=== PATIENT | male | born 1945 | race Caucasian/White ===

== ENCOUNTER 2021-06-12 22:15 | Inpatient (IN) | payer MEDICARE ==
[2021-06-13] MEDS ORDERED: Sodium Chloride 0.9% 1,000 ML IV SCH (04:15)
[2021-06-13 05:36] LABS: #Basophils 0.1 thou/uL (0.0-0.2); #Eosinphils 0.2 thou/uL (0.0-0.7); #Lymphocytes 1.8 thou/uL (1.20-3.40); #Neutrophils 6.9 thou/uL (1.40-6.50); %Basophils 0.5 % (0.0-1.0); %Eosinophils 1.7 % (0.0-10.0); %Lymphocytes 18.3 % (21.0-51.0); %Monocytes 9.9 % (0.0-10.0); %Neutrophils 69.5 % (42.0-75.0); Hemoglobin 13.3 g/dL (14.0-18.0); Mean Corpuscular HGB CONC 31.4 g/dL (32.0-36.0); Mean Corpuscular Hemoglobin 30.5 pg (27.0-31.0); Mean Corpuscular Volume 97.1 fL (78.0-98.0); Mean Platelet Volume 8.1 fL (7.4-10.4); Platelet Count 224 thou/uL (130-400); RBC Distribution Width 16.1 % (11.5-14.5); Red Blood Cell (RBC) Count 4.38 mill/uL (4.70-6.10)
[2021-06-13 05:56] LABS: Anion Gap 15 mmol/L (10-20); BUN (Urea Nitrogen) 22 mg/dL (8.4-25.7); Calc. Creatinine Clearance 101 mL/min (70-130); Calcium 8.2 mg/dL (7.8-10.44); Carbon Dioxide 29 mmol/L (23-31); Chloride 100 mmol/L (98-107); Glucose 87 mg/dL (83-110); Potassium 3.4 mmol/L (3.5-5.1); Sodium 141 mmol/L (136-145)
[2021-06-13] MEDS ORDERED: Bisacodyl 5 MG TAB PO PRN (08:36)
[2021-06-13] MEDS ORDERED: Albuterol Sulfate 2.5 mg/3 ml Neb NEB PRN (10:07)
[2021-06-13] MEDS ORDERED: HYDROcodone/Acetaminophen 5/325 mg Tablet PO PRN (10:08)
[2021-06-13] MEDS ORDERED: Piperacillin/Tazobactam 3.375 GM in Sodium Chloride 0.9% 100 ML IVPB SCH (10:15)
[2021-06-13] MEDS ORDERED: Bumetanide 1 MG/4 ML VIAL IVP SCH (10:15)
[2021-06-13 11:30] LABS: INR-International Normal Ratio 1.6; Prothrombin Time 18.9 sec (12.0-14.7)
[2021-06-13] MEDS: Silodosin 8 MG CAP PO SCH (12:14)
[2021-06-13] MEDS: Bumetanide 1 MG/4 ML VIAL IVP SCH (15:22)
[2021-06-13] MEDS ORDERED: Potassium Chloride 20 MEQ TAB PO SCH (15:30)
[2021-06-13] MEDS: Piperacillin/Tazobactam 3.375 GM in Sodium Chloride 0.9% 100 ML IVPB SCH ×2 (16:39→22:08)
[2021-06-13] MEDS ORDERED: Warfarin Sodium 5 MG TAB PO SCH (17:00)
[2021-06-13] MEDS: Mometasone 100 MCG/PUFF (1 INHALER) INH SCH (19:07)
[2021-06-13] MEDS: Atorvastatin Calcium 10 MG TAB PO SCH (22:08)
[2021-06-14] MEDS: HYDROcodone/Acetaminophen 5/325 mg Tablet PO PRN ×2 (04:59→16:53)
[2021-06-14 05:58] LABS: #Basophils 0.1 thou/uL (0.0-0.2); #Eosinphils 0.3 thou/uL (0.0-0.7); #Lymphocytes 2.2 thou/uL (1.20-3.40); #Monocytes 0.7 thou/uL (0.11-0.59); #Neutrophils 4.5 thou/uL (1.40-6.50); %Basophils 0.7 % (0.0-1.0); %Eosinophils 3.8 % (0.0-10.0); %Monocytes 8.8 % (0.0-10.0); %Neutrophils 57.7 % (42.0-75.0); Hemoglobin 13.2 g/dL (14.0-18.0); Mean Corpuscular HGB CONC 31.3 g/dL (32.0-36.0); Mean Corpuscular Hemoglobin 30.4 pg (27.0-31.0); Mean Corpuscular Volume 96.9 fL (78.0-98.0); Mean Platelet Volume 7.9 fL (7.4-10.4); Platelet Count 208 thou/uL (130-400); RBC Distribution Width 16.2 % (11.5-14.5); Red Blood Cell (RBC) Count 4.34 mill/uL (4.70-6.10); White Blood Cell (WBC) Count 7.7 thou/uL (4.8-10.8)
[2021-06-14 06:06] LABS: INR-International Normal Ratio 1.5; Prothrombin Time 18.2 sec (12.0-14.7)
[2021-06-14 06:19] LABS: Anion Gap 11 mmol/L (10-20); BUN (Urea Nitrogen) 19 mg/dL (8.4-25.7); Calc. Creatinine Clearance 99 mL/min (70-130); Calcium 8.1 mg/dL (7.8-10.44); Carbon Dioxide 33 mmol/L (23-31); Chloride 100 mmol/L (98-107); Glucose 98 mg/dL (83-110); Magnesium 1.5 mg/dL (1.6-2.6); Potassium 3.8 mmol/L (3.5-5.1); Sodium 140 mmol/L (136-145)
[2021-06-14] MEDS: Bumetanide 1 MG/4 ML VIAL IVP SCH ×2 (06:26→12:59)
[2021-06-14] MEDS: Piperacillin/Tazobactam 3.375 GM in Sodium Chloride 0.9% 100 ML IVPB SCH ×3 (06:27→20:37)
[2021-06-14] MEDS: Potassium Chloride 20 MEQ TAB PO SCH (08:19)
[2021-06-14] MEDS: Silodosin 8 MG CAP PO SCH (08:19)
[2021-06-14] MEDS: Mometasone 100 MCG/PUFF (1 INHALER) INH SCH ×2 (09:59→19:10)
[2021-06-14] MEDS: Atorvastatin Calcium 10 MG TAB PO SCH (20:37)
[2021-06-15] MEDS: Piperacillin/Tazobactam 3.375 GM in Sodium Chloride 0.9% 100 ML IVPB SCH ×3 (06:01→22:10)
[2021-06-15] MEDS: Bumetanide 1 MG/4 ML VIAL IVP SCH ×2 (06:02→15:19)
[2021-06-15] MEDS: HYDROcodone/Acetaminophen 5/325 mg Tablet PO PRN ×2 (06:06→22:09)
[2021-06-15] MEDS: Mometasone 100 MCG/PUFF (1 INHALER) INH SCH ×2 (06:15→18:23)
[2021-06-15] MEDS: Potassium Chloride 20 MEQ TAB PO SCH (08:29)
[2021-06-15] MEDS: Silodosin 8 MG CAP PO SCH (08:29)
[2021-06-15] MEDS ORDERED: Morphine 2 MG/ML VIAL ONE (14:30)
[2021-06-15] MEDS ORDERED: Propofol 1,000 MG/100 ML VIAL IV ONE (15:02)
[2021-06-15] MEDS ORDERED: Fentanyl 100 MCG/2 ML VIAL ONE (15:26)
[2021-06-15] MEDS ORDERED: Piperacillin/Tazobactam 3.375 GM VIAL ONE (15:28)
[2021-06-15] MEDS ORDERED: Sodium Chloride 0.9% 100 ML ONE (15:28)
[2021-06-15] MEDS ORDERED: Dexamethasone 20 MG/5 ML VIAL ONE (15:54)
[2021-06-15] MEDS ORDERED: PROPOFOL 200 MG/20 ML VIAL ONE (15:54)
[2021-06-15] MEDS ORDERED: PHENYLEPHRINE-NS 100 MCG/ML 10 ML SYRINGE ONE (15:54)
[2021-06-15] MEDS ORDERED: Lidocaine 1% PF 5 ML VIAL ONE (15:54)
[2021-06-15] MEDS ORDERED: Ondansetron PF 4 MG/2 ML Vial ONE (15:54)
[2021-06-15] MEDS ORDERED: Sodium Chloride 0.9% 30 ML ONE (16:07)
[2021-06-15] MEDS: Atorvastatin Calcium 10 MG TAB PO SCH (22:09)
[2021-06-16] MEDS: Morphine 2 MG/ML VIAL SLOW IVP PRN ×2 (00:22→06:12)
[2021-06-16] MEDS ORDERED: Bumetanide 1 MG/4 ML VIAL IVP SCH (00:30)
[2021-06-16] MEDS: HYDROcodone/Acetaminophen 5/325 mg Tablet PO PRN ×2 (04:15→11:42)
[2021-06-16] MEDS: Piperacillin/Tazobactam 3.375 GM in Sodium Chloride 0.9% 100 ML IVPB SCH (06:11)
[2021-06-16] MEDS: Bumetanide 1 MG/4 ML VIAL IVP SCH ×2 (06:11→11:43)
[2021-06-16] MEDS ORDERED: Ibuprofen 600 MG TAB PO PRN (08:15)
[2021-06-16] MEDS ORDERED: Acetaminophen 500 MG TAB PO PRN (08:15)
[2021-06-16] MEDS: traMADol HCl 50 MG TAB PO PRN ×2 (09:37→16:09)
[2021-06-16] MEDS: Sulfameth/Trimethoprim DS 800-160mg TAB PO SCH ×2 (09:37→20:18)
[2021-06-16] MEDS: Doxycycline 100 MG CAP PO SCH ×2 (09:38→20:18)
[2021-06-16] MEDS: Potassium Chloride 20 MEQ TAB PO SCH (09:38)
[2021-06-16] MEDS: Silodosin 8 MG CAP PO SCH (09:39)
[2021-06-16] MEDS: Mometasone 100 MCG/PUFF (1 INHALER) INH SCH ×2 (10:03→18:48)
[2021-06-16] MEDS: Bumetanide 1 MG TAB PO SCH (16:11)
[2021-06-16] MEDS: Morphine 4 MG/ML VIAL SLOW IVP PRN (20:17)
[2021-06-16] MEDS: Atorvastatin Calcium 10 MG TAB PO SCH (20:18)
[2021-06-16] MEDS: Docusate 100 MG CAP PO PRN (20:41)
[2021-06-17] MEDS ORDERED: diphenhydrAMINE 25 MG CAP PO PRN (01:36)
[2021-06-17] MEDS: Morphine 4 MG/ML VIAL SLOW IVP PRN ×2 (02:00→10:11)
[2021-06-17 05:28] LABS: #Lymphocytes 2.1 thou/uL (1.20-3.40); #Monocytes 0.8 thou/uL (0.11-0.59); #Neutrophils 7.7 thou/uL (1.40-6.50); %Basophils 0.2 % (0.0-1.0); %Eosinophils 0.2 % (0.0-10.0); %Lymphocytes 19.5 % (21.0-51.0); %Monocytes 7.1 % (0.0-10.0); Hemoglobin 13.5 g/dL (14.0-18.0); Mean Corpuscular HGB CONC 31.7 g/dL (32.0-36.0); Mean Corpuscular Hemoglobin 31.1 pg (27.0-31.0); Mean Corpuscular Volume 98.1 fL (78.0-98.0); Mean Platelet Volume 8.3 fL (7.4-10.4); Platelet Count 212 thou/uL (130-400); RBC Distribution Width 16.1 % (11.5-14.5); Red Blood Cell (RBC) Count 4.35 mill/uL (4.70-6.10); White Blood Cell (WBC) Count 10.6 thou/uL (4.8-10.8)
[2021-06-17 05:50] LABS: Anion Gap 14 mmol/L (10-20); BUN (Urea Nitrogen) 25 mg/dL (8.4-25.7); Calc. Creatinine Clearance 90 mL/min (70-130); Calcium 8.5 mg/dL (7.8-10.44); Carbon Dioxide 34 mmol/L (23-31); Chloride 94 mmol/L (98-107); Glucose 102 mg/dL (83-110); Potassium 3.7 mmol/L (3.5-5.1); Sodium 138 mmol/L (136-145)
[2021-06-17] MEDS: Mometasone 100 MCG/PUFF (1 INHALER) INH SCH ×2 (06:56→18:51)
[2021-06-17] MEDS: Bumetanide 1 MG TAB PO SCH ×2 (09:19→16:12)
[2021-06-17] MEDS: Sulfameth/Trimethoprim DS 800-160mg TAB PO SCH ×2 (09:20→19:54)
[2021-06-17] MEDS: Doxycycline 100 MG CAP PO SCH ×2 (09:20→19:54)
[2021-06-17] MEDS: Silodosin 8 MG CAP PO SCH (09:20)
[2021-06-17] MEDS: Potassium Chloride 20 MEQ TAB PO SCH (09:21)
[2021-06-17] MEDS ORDERED: Bisacodyl 5 MG TAB PO SCH (12:00)
[2021-06-17] MEDS: HYDROcodone/Acetaminophen 5/325 mg Tablet PO PRN ×2 (14:17→19:53)
[2021-06-17] MEDS ORDERED: Aspirin 81 mg Enteric Coated Tablet PO SCH (16:00)
[2021-06-17] MEDS: Warfarin Sodium 5 MG TAB PO SCH (16:11)
[2021-06-17] MEDS: traMADol HCl 50 MG TAB PO PRN (16:13)
[2021-06-17] MEDS: Docusate 100 MG CAP PO PRN (19:54)
[2021-06-17] MEDS: Atorvastatin Calcium 10 MG TAB PO SCH (19:54)
[2021-06-17] MEDS ORDERED: Pravastatin Sodium 40 MG TAB PO SCH (21:00)
[2021-06-18] MEDS: Doxycycline 100 MG CAP PO SCH ×2 (08:30→20:24)
[2021-06-18] MEDS: Aspirin 81 mg Enteric Coated Tablet PO SCH (08:30)
[2021-06-18] MEDS: Lisinopril 5 MG TAB PO SCH (08:30)
[2021-06-18] MEDS: Potassium Chloride 20 MEQ TAB PO SCH (08:30)
[2021-06-18] MEDS: Bumetanide 1 MG TAB PO SCH ×2 (08:30→15:53)
[2021-06-18] MEDS: Silodosin 8 MG CAP PO SCH (08:31)
[2021-06-18] MEDS: Sulfameth/Trimethoprim DS 800-160mg TAB PO SCH ×2 (08:31→20:25)
[2021-06-18] MEDS: Mometasone 100 MCG/PUFF (1 INHALER) INH SCH (08:36)
[2021-06-18] MEDS: HYDROcodone/Acetaminophen 5/325 mg Tablet PO PRN (15:54)
[2021-06-18] MEDS: Warfarin Sodium 5 MG TAB PO SCH (15:55)
[2021-06-18] MEDS: Atorvastatin Calcium 10 MG TAB PO SCH (20:24)
[2021-06-18] MEDS: Docusate 100 MG CAP PO PRN (20:24)
[2021-06-19] MEDS: Mometasone 100 MCG/PUFF (1 INHALER) INH SCH ×3 (03:34→18:33)
[2021-06-19] MEDS: HYDROcodone/Acetaminophen 5/325 mg Tablet PO PRN (05:22)
[2021-06-19 05:46] LABS: INR-International Normal Ratio 1.2; Prothrombin Time 15.6 sec (12.0-14.7)
[2021-06-19] MEDS: Potassium Chloride 20 MEQ TAB PO SCH (08:55)
[2021-06-19] MEDS: Docusate 100 MG CAP PO SCH (08:55)
[2021-06-19] MEDS: Aspirin 81 mg Enteric Coated Tablet PO SCH (08:55)
[2021-06-19] MEDS: Lisinopril 5 MG TAB PO SCH (08:55)
[2021-06-19] MEDS: Doxycycline 100 MG CAP PO SCH ×2 (08:55→20:57)
[2021-06-19] MEDS: Sulfameth/Trimethoprim DS 800-160mg TAB PO SCH ×2 (08:56→20:57)
[2021-06-19] MEDS: Bumetanide 1 MG TAB PO SCH ×2 (08:56→16:36)
[2021-06-19] MEDS: Silodosin 8 MG CAP PO SCH (09:19)
[2021-06-19] MEDS ORDERED: Magnesium Citrate 300 ML BOT PO SCH (16:00)
[2021-06-19] MEDS ORDERED: Warfarin Sodium 7.5 MG TAB PO SCH (17:00)
[2021-06-19] MEDS: Atorvastatin Calcium 10 MG TAB PO SCH (20:57)
[2021-06-20] MEDS: HYDROcodone/Acetaminophen 5/325 mg Tablet PO PRN ×4 (00:49→22:45)
[2021-06-20 06:38] LABS: INR-International Normal Ratio 1.4; Prothrombin Time 16.9 sec (12.0-14.7)
[2021-06-20] MEDS: Mometasone 100 MCG/PUFF (1 INHALER) INH SCH ×2 (06:48→19:13)
[2021-06-20] MEDS: Lisinopril 5 MG TAB PO SCH (08:23)
[2021-06-20] MEDS: Doxycycline 100 MG CAP PO SCH ×2 (08:23→20:05)
[2021-06-20] MEDS: Docusate 100 MG CAP PO SCH (08:24)
[2021-06-20] MEDS: Aspirin 81 mg Enteric Coated Tablet PO SCH (08:24)
[2021-06-20] MEDS: Bumetanide 1 MG TAB PO SCH ×2 (08:24→15:57)
[2021-06-20] MEDS: Silodosin 8 MG CAP PO SCH (08:24)
[2021-06-20] MEDS: Sulfameth/Trimethoprim DS 800-160mg TAB PO SCH ×2 (08:24→20:05)
[2021-06-20] MEDS: Potassium Chloride 20 MEQ TAB PO SCH (08:24)
[2021-06-20] MEDS: Apixaban 5 MG TAB PO SCH ×2 (08:33→20:05)
[2021-06-20 16:50] LABS: SARS-CoV-2 PCR by NAA Not Detected (NotDetected)
[2021-06-20] MEDS: Atorvastatin Calcium 10 MG TAB PO SCH (20:05)
[2021-06-21] MEDS: HYDROcodone/Acetaminophen 5/325 mg Tablet PO PRN ×2 (05:48→16:56)
[2021-06-21] MEDS: Mometasone 100 MCG/PUFF (1 INHALER) INH SCH ×2 (08:17→19:35)
[2021-06-21] MEDS: Silodosin 8 MG CAP PO SCH (09:14)
[2021-06-21] MEDS: Doxycycline 100 MG CAP PO SCH ×2 (09:14→19:36)
[2021-06-21] MEDS: Docusate 100 MG CAP PO SCH (09:14)
[2021-06-21] MEDS: Apixaban 5 MG TAB PO SCH ×2 (09:15→19:37)
[2021-06-21] MEDS: Aspirin 81 mg Enteric Coated Tablet PO SCH (09:16)
[2021-06-21] MEDS: Sulfameth/Trimethoprim DS 800-160mg TAB PO SCH ×2 (09:16→19:37)
[2021-06-21] MEDS: Potassium Chloride 20 MEQ TAB PO SCH (09:16)
[2021-06-21] MEDS: Bumetanide 1 MG TAB PO SCH ×2 (09:23→15:46)
[2021-06-21] MEDS: Lisinopril 5 MG TAB PO SCH (09:23)
[2021-06-21 14:36] VITALS: BMI 30.7
[2021-06-21] MEDS: Atorvastatin Calcium 10 MG TAB PO SCH (19:37)
[2021-06-21] MEDS: traMADol HCl 50 MG TAB PO PRN (19:38)
[2021-06-22] MEDS: HYDROcodone/Acetaminophen 5/325 mg Tablet PO PRN (00:52)
[2021-06-22] MEDS: Mometasone 100 MCG/PUFF (1 INHALER) INH SCH ×2 (07:52→18:59)
[2021-06-22] MEDS: Silodosin 8 MG CAP PO SCH (08:37)
[2021-06-22] MEDS: Doxycycline 100 MG CAP PO SCH ×2 (08:37→19:53)
[2021-06-22] MEDS: Sulfameth/Trimethoprim DS 800-160mg TAB PO SCH ×2 (08:37→19:53)
[2021-06-22] MEDS: Aspirin 81 mg Enteric Coated Tablet PO SCH (08:37)
[2021-06-22] MEDS: Potassium Chloride 20 MEQ TAB PO SCH (08:37)
[2021-06-22] MEDS: Apixaban 5 MG TAB PO SCH ×2 (08:38→19:52)
[2021-06-22] MEDS: traMADol HCl 50 MG TAB PO PRN ×2 (08:38→20:43)
[2021-06-22] MEDS: Docusate 100 MG CAP PO SCH (08:39)
[2021-06-22] MEDS: Bumetanide 1 MG TAB PO SCH ×2 (09:16→15:59)
[2021-06-22] MEDS: Lisinopril 5 MG TAB PO SCH (10:52)
[2021-06-22] MEDS ORDERED: FLU VACC QS2021-22(65YR UP)/PF 240 MCG/0.7 ML SYRINGE IM ONE (12:45)
[2021-06-22] MEDS: Atorvastatin Calcium 10 MG TAB PO SCH (19:52)
[2021-06-23] MEDS: HYDROcodone/Acetaminophen 5/325 mg Tablet PO PRN ×2 (00:59→05:15)
[2021-06-23] MEDS ORDERED: Famotidine 20 MG TAB PO SCH ×2 (03:15→09:00)
[2021-06-23] MEDS ORDERED: Ondansetron PF 4 MG/2 ML Vial IVP PRN (03:56)
[2021-06-23] MEDS: Mometasone 100 MCG/PUFF (1 INHALER) INH SCH (07:52)
[2021-06-23] MEDS: Potassium Chloride 20 MEQ TAB PO SCH (08:14)
[2021-06-23] MEDS: Doxycycline 100 MG CAP PO SCH (08:15)
[2021-06-23] MEDS: Apixaban 5 MG TAB PO SCH (08:15)
[2021-06-23] MEDS: Docusate 100 MG CAP PO SCH (08:15)
[2021-06-23] MEDS: Aspirin 81 mg Enteric Coated Tablet PO SCH (08:15)
[2021-06-23] MEDS: Sulfameth/Trimethoprim DS 800-160mg TAB PO SCH (08:15)
[2021-06-23] MEDS: Bumetanide 1 MG TAB PO SCH ×3 (08:15→15:33)
[2021-06-23] MEDS: Lisinopril 5 MG TAB PO SCH (08:15)
[2021-06-23] MEDS: Silodosin 8 MG CAP PO SCH (08:15)
[2021-06-23] MEDS ORDERED: Promethazine HCl 25 MG/ML VIAL IM PRN (08:27)
[2021-06-23 11:51] VITALS: BP 114/55; TEMP 98.2
== END 2021-06-23 16:25 | disposition swing bed (61) | DRG 474 ==
LOC: 3SE 06-13 03:27
PROVIDERS: ADMIT Student in an Organized Health Care Education/Training Program; ATTEND Internal Medicine
PROC: 0Y6M0Z4 Detachment at Right Foot, Complete 1st Ray, Open Approach (ICD-10-PCS; principal; 2021-06-15)
PROC: 05H533Z Insertion of Infusion Device into Right Subclavian Vein, Percutaneous Approach (ICD-10-PCS; 2021-06-15)
DX: M86.171 Other acute osteomyelitis, right ankle and foot (principal); J96.20 Acute and chronic respiratory failure, unspecified whether with hypoxia or hypercapnia; I50.23 Acute on chronic systolic (congestive) heart failure; G45.9 Transient cerebral ischemic attack, unspecified; L03.115 Cellulitis of right lower limb; I48.20 Chronic atrial fibrillation, unspecified; L97.419 Non-pressure chronic ulcer of right heel and midfoot with unspecified severity; E87.6 Hypokalemia; K59.00 Constipation, unspecified; Z20.822 Contact with and (suspected) exposure to COVID-19; J44.9 Chronic obstructive pulmonary disease, unspecified; I25.10 Atherosclerotic heart disease of native coronary artery without angina pectoris; Z95.5 Presence of coronary angioplasty implant and graft; Z95.2 Presence of prosthetic heart valve; Z86.718 Personal history of other venous thrombosis and embolism; Z79.51 Long term (current) use of inhaled steroids; Z79.899 Other long term (current) drug therapy; Z87.891 Personal history of nicotine dependence; Z98.890 Other specified postprocedural states
CPT/HCPCS: 36415; 71045; 78315; 80048; 83735; 83880; 85025; 85610; 86140; 87040; 88305; 88311; 90471; 90662; 93306; 94640; A9503; C1751; G0008; J1100; J2270; J2405; J2543; J2550; J2704; J3010; J3490; J7620; Q0163; U0003; U0005

== ENCOUNTER 2022-03-10 12:14 | Inpatient (IN) | payer MEDICARE ==
[2022-03-10] MEDS ORDERED: GASTROGRAFIN 30 ML BOT ONE (12:18)
[2022-03-10] MEDS ORDERED: Iopamidol-370 76% 500 ML 1 ML ONE (12:18)
[2022-03-10 14:10] LABS: #Eosinphils 0.3 thou/uL (0.0-0.7); #Lymphocytes 0.8 thou/uL (1.20-3.40); #Monocytes 0.9 thou/uL (0.11-0.59); #Neutrophils 9.3 thou/uL (1.40-6.50); %Basophils 0.3 % (0.0-1.0); %Eosinophils 2.4 % (0.0-10.0); %Lymphocytes 6.9 % (21.0-51.0); %Monocytes 7.8 % (0.0-10.0); %Neutrophils 82.6 % (42.0-75.0); Hemoglobin 14.1 g/dL (14.0-18.0); Mean Corpuscular HGB CONC 31.1 g/dL (32.0-36.0); Mean Corpuscular Hemoglobin 30.5 pg (27.0-31.0); Mean Corpuscular Volume 98.1 fL (78.0-98.0); Mean Platelet Volume 9.3 fL (7.4-10.4); Platelet Count 132 thou/uL (130-400); Red Blood Cell (RBC) Count 4.64 mill/uL (4.70-6.10); White Blood Cell (WBC) Count 11.3 thou/uL (4.8-10.8)
[2022-03-10 14:21] LABS: INR-International Normal Ratio 1.5; Prothrombin Time 17.9 sec (12.0-14.7)
[2022-03-10 14:22] LABS: PTT 34.5 sec (22.9-36.1)
[2022-03-10 14:30] LABS: ALT (SGPT) 37 U/L (8-55); AST (SGOT) 97 U/L (5-34); Albumin 2.7 g/dL (3.4-4.8); Alkaline Phosphatase 139 U/L (40-110); Anion Gap 17 mmol/L (10-20); BUN (Urea Nitrogen) 30 mg/dL (8.4-25.7); Bilirubin, Total 12.6 mg/dL (0.2-1.2); Calc. Creatinine Clearance 0 mL/min (70-130); Calcium 8.4 mg/dL (7.8-10.44); Carbon Dioxide 23 mmol/L (23-31); Chloride 103 mmol/L (98-107); Globulin 4.1 g/dL (2.4-3.5); Glucose 71 mg/dL (83-110); Lipase 803 U/L (8-78); Potassium 4.9 mmol/L (3.5-5.1); Protein, Total 6.8 g/dL (5.8-8.1); Sodium 138 mmol/L (136-145)
[2022-03-10] MEDS ORDERED: Ondansetron PF 4 MG/2 ML Vial ONE (15:24)
[2022-03-10 16:20] LABS: Bilirubin Unable to Interpret (Negative); Blood, Urine Unable to Interpret (Negative); Clarity Hazy (Clear); Glucose, Urine (Dipstick) Unable to Interpret mg/dL (Negative); Ketone, Urine Unable to Interpret mg/dL (Negative); Leukocyte Unable to Interpret Leu/uL (Negative); Nitrite Unable to Interpret (Negative); Protein, Urine (Dipstick) Unable to Interpret mg/dL (Neg-Trace); Specific Gravity, Urine 1.025 (1.002-1.036); Urobilinogen UNABLE TO INTERPRET mg/dL (Less than 2); pH, Urine 5.9 (5.0-9.0)
[2022-03-10 16:24] LABS: Bacteria/HPF 2+ HPF (None Seen); Squamous Epithelial None Seen HPF (0-3)
[2022-03-10] MEDS ORDERED: hydrALAZINE 20 MG/ML VIAL SLOW IVP PRN (17:34)
[2022-03-10] MEDS ORDERED: Acetaminophen 325 MG TAB PO PRN (17:34)
[2022-03-10] MEDS ORDERED: Ondansetron ODT 4 MG TAB PO PRN (17:34)
[2022-03-10] MEDS ORDERED: Morphine IR 10 MG/5 ML UDCUP PO PRN (17:40)
[2022-03-10] MEDS: Mometasone 100 MCG/PUFF (1 INHALER) INH SCH (19:04)
[2022-03-10 22:17] VITALS: BMI 31.4
[2022-03-10] MEDS: Lactated Ringer's 1,000 ML IV SCH (23:14)
[2022-03-10] MEDS: cefTRIAXone\\ROCEPHIN 1 GM in Sodium Chloride 0.9% 100 ML IVPB SCH (23:15)
[2022-03-11] MEDS: Ondansetron PF 4 MG/2 ML Vial IVP PRN ×2 (00:54→18:09)
[2022-03-11 07:06] LABS: #Eosinphils 0.1 thou/uL (0.0-0.7); #Lymphocytes 1.6 thou/uL (1.20-3.40); #Monocytes 0.7 thou/uL (0.11-0.59); #Neutrophils 8.9 thou/uL (1.40-6.50); %Basophils 0.1 % (0.0-1.0); %Eosinophils 0.6 % (0.0-10.0); %Lymphocytes 13.8 % (21.0-51.0); %Monocytes 6.5 % (0.0-10.0); %Neutrophils 78.9 % (42.0-75.0); Hemoglobin 14.7 g/dL (14.0-18.0); Mean Corpuscular Volume 96.8 fL (78.0-98.0); Platelet Count 131 thou/uL (130-400); RBC Distribution Width 16.2 % (11.5-14.5); White Blood Cell (WBC) Count 11.2 thou/uL (4.8-10.8)
[2022-03-11] MEDS: Mometasone 100 MCG/PUFF (1 INHALER) INH SCH ×2 (07:20→17:15)
[2022-03-11 07:36] LABS: ALT (SGPT) 41 U/L (8-55); AST (SGOT) 108 U/L (5-34); Albumin 2.6 g/dL (3.4-4.8); Alkaline Phosphatase 138 U/L (40-110); Anion Gap 19 mmol/L (10-20); BUN (Urea Nitrogen) 26 mg/dL (8.4-25.7); Bilirubin, Total 13.5 mg/dL (0.2-1.2); Calc. Creatinine Clearance 110 mL/min (70-130); Calcium 8.6 mg/dL (7.8-10.44); Carbon Dioxide 19 mmol/L (23-31); Chloride 102 mmol/L (98-107); Globulin 4.5 g/dL (2.4-3.5); Glucose 71 mg/dL (83-110); Lipase 396 U/L (8-78); Potassium 4.8 mmol/L (3.5-5.1); Protein, Total 7.1 g/dL (5.8-8.1); Sodium 135 mmol/L (136-145)
[2022-03-11] MEDS: Enoxaparin Sodium 40 MG/0.4 ML SYRINGE SC SCH (08:43)
[2022-03-11] MEDS: Saccharomyces boulardii 250 MG CAP PO SCH (08:43)
[2022-03-11] MEDS: HYDROcodone/Acetaminophen 5/325 mg Tablet PO PRN (12:16)
[2022-03-11] MEDS: Lactated Ringer's 1,000 ML IV SCH (12:18)
[2022-03-11 14:51] LABS: HBCM Index 0.07 S/CO (0-0.79); HBSAg Index 0.32 S/CO (0-0.99); Hep A IgM AB Non-Reactive (NonReactive); Hep A IgM S/CO 0.17 S/CO (0-0.79); Hep B Surf Ag Non-Reactive S/CO (NonReactive); Hep C IgG Ab Non-Reactive (NonReactive); Hep C Index 0.21 S/CO (0-0.79); Hepatitis B Core IgM Abs Non-Reactive (NonReactive)
[2022-03-11] MEDS ORDERED: Promethazine HCl 25 MG in Sodium Chloride 0.9% 50 ML IVPB SCH (20:45)
[2022-03-11] MEDS: Lorazepam 0.5 MG TAB PO PRN (21:48)
[2022-03-12] MEDS: Ondansetron PF 4 MG/2 ML Vial IVP PRN (00:01)
[2022-03-12] MEDS: HYDROcodone/Acetaminophen 5/325 mg Tablet PO PRN ×2 (00:02→19:44)
[2022-03-12] MEDS: cefTRIAXone\\ROCEPHIN 1 GM in Sodium Chloride 0.9% 100 ML IVPB SCH ×2 (00:06→23:21)
[2022-03-12] MEDS ORDERED: Promethazine HCl 25 MG in Sodium Chloride 0.9% 50 ML IVPB PRN (00:11)
[2022-03-12] MEDS ORDERED: Furosemide 40 MG/4 ML VIAL SLOW IVP SCH (00:15)
[2022-03-12] MEDS: Mometasone 100 MCG/PUFF (1 INHALER) INH SCH ×2 (06:29→18:42)
[2022-03-12 06:44] LABS: #Lymphocytes 0.6 thou/uL (1.20-3.40); #Monocytes 0.8 thou/uL (0.11-0.59); #Neutrophils 13.3 thou/uL (1.40-6.50); %Eosinophils 0.1 % (0.0-10.0); %Lymphocytes 4.4 % (21.0-51.0); %Monocytes 5.1 % (0.0-10.0); %Neutrophils 90.4 % (42.0-75.0); Mean Corpuscular HGB CONC 30.8 g/dL (32.0-36.0); Mean Corpuscular Hemoglobin 29.9 pg (27.0-31.0); Mean Corpuscular Volume 97.1 fL (78.0-98.0); Mean Platelet Volume 9.6 fL (7.4-10.4); Platelet Count 162 thou/uL (130-400); RBC Distribution Width 16.4 % (11.5-14.5); Red Blood Cell (RBC) Count 5.01 mill/uL (4.70-6.10); White Blood Cell (WBC) Count 14.7 thou/uL (4.8-10.8)
[2022-03-12 07:09] LABS: ALT (SGPT) 42 U/L (8-55); AST (SGOT) 106 U/L (5-34); Albumin 2.7 g/dL (3.4-4.8); Alkaline Phosphatase 142 U/L (40-110); Anion Gap 21 mmol/L (10-20); BUN (Urea Nitrogen) 25 mg/dL (8.4-25.7); Bilirubin, Total 15.3 mg/dL (0.2-1.2); Calc. Creatinine Clearance 101 mL/min (70-130); Calcium 8.6 mg/dL (7.8-10.44); Carbon Dioxide 20 mmol/L (23-31); Chloride 101 mmol/L (98-107); Globulin 4.8 g/dL (2.4-3.5); Glucose 68 mg/dL (83-110); Potassium 4.7 mmol/L (3.5-5.1); Protein, Total 7.5 g/dL (5.8-8.1); Sodium 137 mmol/L (136-145)
[2022-03-12] MEDS: Lorazepam 0.5 MG TAB PO PRN (08:23)
[2022-03-12] MEDS: Saccharomyces boulardii 250 MG CAP PO SCH (08:23)
[2022-03-12] MEDS: Enoxaparin Sodium 40 MG/0.4 ML SYRINGE SC SCH (08:23)
[2022-03-12] MEDS: Furosemide 40 MG/4 ML VIAL SLOW IVP SCH (08:23)
[2022-03-13 06:26] LABS: ALT (SGPT) 32 U/L (8-55); AST (SGOT) 67 U/L (5-34); Albumin 2.5 g/dL (3.4-4.8); Alkaline Phosphatase 120 U/L (40-110); Anion Gap 18 mmol/L (10-20); BUN (Urea Nitrogen) 31 mg/dL (8.4-25.7); Bilirubin, Total 11.6 mg/dL (0.2-1.2); Calc. Creatinine Clearance 104 mL/min (70-130); Calcium 8.2 mg/dL (7.8-10.44); Carbon Dioxide 23 mmol/L (23-31); Chloride 100 mmol/L (98-107); Globulin 4.5 g/dL (2.4-3.5); Glucose 71 mg/dL (83-110); Potassium 4.1 mmol/L (3.5-5.1); Sodium 137 mmol/L (136-145)
[2022-03-13] MEDS: Mometasone 100 MCG/PUFF (1 INHALER) INH SCH ×2 (06:58→19:18)
[2022-03-13 07:44] LABS: #Neutrophils 12.3 thou/uL (1.40-6.50); %Basophils 0.1 % (0.0-1.0); %Eosinophils 0.1 % (0.0-10.0); %Lymphocytes 7.1 % (21.0-51.0); %Neutrophils 85.7 % (42.0-75.0); Hemoglobin 14.7 g/dL (14.0-18.0); Mean Corpuscular HGB CONC 31.6 g/dL (32.0-36.0); Mean Corpuscular Hemoglobin 29.9 pg (27.0-31.0); Mean Corpuscular Volume 94.4 fL (78.0-98.0); Mean Platelet Volume 9.7 fL (7.4-10.4); Platelet Count 153 thou/uL (130-400); RBC Distribution Width 15.9 % (11.5-14.5); Red Blood Cell (RBC) Count 4.92 mill/uL (4.70-6.10); White Blood Cell (WBC) Count 14.4 thou/uL (4.8-10.8)
[2022-03-13 08:00] LABS: INR-International Normal Ratio 1.8; Prothrombin Time 20.8 sec (12.0-14.7)
[2022-03-13] MEDS: Enoxaparin Sodium 40 MG/0.4 ML SYRINGE SC SCH (08:04)
[2022-03-13] MEDS: Furosemide 40 MG/4 ML VIAL SLOW IVP SCH (08:05)
[2022-03-13] MEDS: Saccharomyces boulardii 250 MG CAP PO SCH (08:05)
[2022-03-13] MEDS ORDERED: Phytonadione 10 MG/ML AMP SC SCH (09:15)
[2022-03-13] MEDS: Ondansetron PF 4 MG/2 ML Vial IVP PRN (12:50)
[2022-03-13] MEDS: cefTRIAXone\\ROCEPHIN 1 GM in Sodium Chloride 0.9% 100 ML IVPB SCH (23:41)
[2022-03-14] MEDS: Lorazepam 0.5 MG TAB PO PRN (03:30)
[2022-03-14 06:27] LABS: INR-International Normal Ratio 1.6; Prothrombin Time 19.4 sec (12.0-14.7)
[2022-03-14] MEDS: Mometasone 100 MCG/PUFF (1 INHALER) INH SCH ×2 (06:31→22:53)
[2022-03-14 06:46] LABS: ALT (SGPT) 28 U/L (8-55); AST (SGOT) 57 U/L (5-34); Albumin 2.3 g/dL (3.4-4.8); Alkaline Phosphatase 102 U/L (40-110); Anion Gap 18 mmol/L (10-20); BUN (Urea Nitrogen) 41 mg/dL (8.4-25.7); Bilirubin, Total 9.4 mg/dL (0.2-1.2); Calc. Creatinine Clearance 119 mL/min (70-130); Calcium 7.8 mg/dL (7.8-10.44); Carbon Dioxide 25 mmol/L (23-31); Chloride 100 mmol/L (98-107); Globulin 4.2 g/dL (2.4-3.5); Glucose 79 mg/dL (83-110); Potassium 3.7 mmol/L (3.5-5.1); Protein, Total 6.5 g/dL (5.8-8.1); Sodium 139 mmol/L (136-145)
[2022-03-14 06:59] LABS: Band 3 % (5-11); Hemoglobin 13.4 g/dL (14.0-18.0); Lymphocytes 6 % (21-51); MDiff Complete? YES; Mean Corpuscular HGB CONC 31.6 g/dL (32.0-36.0); Mean Corpuscular Hemoglobin 30.2 pg (27.0-31.0); Mean Corpuscular Volume 95.5 fL (78.0-98.0); Mean Platelet Volume 9.8 fL (7.4-10.4); Monocytes 5 % (0-10); Neutrophil 86 % (42-75); Platelet Count 149 thou/uL (130-400); Platelet Morphology Comment Appears Adequate; RBC Morphology Normal; Red Blood Cell (RBC) Count 4.44 mill/uL (4.70-6.10); White Blood Cell (WBC) Count 21.9 thou/uL (4.8-10.8)
[2022-03-14] MEDS: Furosemide 40 MG/4 ML VIAL SLOW IVP SCH (08:58)
[2022-03-14] MEDS: Saccharomyces boulardii 250 MG CAP PO SCH (08:58)
[2022-03-14] MEDS ORDERED: Indomethacin 50 MG SUPP PR SCH (10:15)
[2022-03-14] MEDS ORDERED: Indomethacin 50 MG SUPP ONE (13:21)
[2022-03-14] MEDS ORDERED: Iopamidol 30 ML ONE (13:22)
[2022-03-14] MEDS ORDERED: Fentanyl 100 MCG/2 ML VIAL ONE (13:30)
[2022-03-14] MEDS ORDERED: Succinylcholine 200 MG/10 ml SYRINGE FS ONE (13:45)
[2022-03-14] MEDS ORDERED: Ondansetron PF 4 MG/2 ML Vial ONE (13:45)
[2022-03-14] MEDS ORDERED: PROPOFOL 200 MG/20 ML VIAL ONE (13:45)
[2022-03-14] MEDS ORDERED: Rocuronium Bromide 10 MG/ML (10ML VIAL) ONE (13:45)
[2022-03-14] MEDS ORDERED: PHENYLEPHRINE-NS 100 MCG/ML 10 ML SYRINGE ONE (14:35)
[2022-03-14] MEDS ORDERED: EPINEPHrine 1 MG/10 ML Abboject SYRINGE ONE (14:37)
[2022-03-14 15:03] LABS: Actual Bicarbonate (HCO3a) 29.5 mEq/L (22-28); Analyzer IN Cardio OR; Base Excess (BEa) -1.7 mEq/L (-2.0 to +3.0); Calcium, Ionized (arterial) 1.04 mmol/L (1.12-1.30); Carboxyhemoglobin (COHb) 1.3 gm% (0.0-3.0); Hemoglobin (Hb) 16.1 g/dL (14.0-18.0); O2 Tension (PaO2), arterial 72.5 mmHg (> 70.0)
[2022-03-14 15:04] LABS: ALV-art Gradient 111.575 mmHg (0-20); CO2 Tension 80.9 mmHg (35.0-45.0); Puncture Site RRA; pH, Arterial 7.18 (7.35-7.45)
[2022-03-14] MEDS ORDERED: Promethazine HCl 25 MG/ML VIAL IVPB PRN (15:32)
[2022-03-15] MEDS: Pantoprazole 40 MG VIAL IVP SCH ×3 (01:41→21:31)
[2022-03-15] MEDS: cefTRIAXone\\ROCEPHIN 1 GM in Sodium Chloride 0.9% 100 ML IVPB SCH ×2 (01:41→23:19)
[2022-03-15 04:03] LABS: #Monocytes 1.3 thou/uL (0.11-0.59); #Neutrophils 12.2 thou/uL (1.40-6.50); %Basophils 0.1 % (0.0-1.0); %Eosinophils 0.3 % (0.0-10.0); %Lymphocytes 12.9 % (21.0-51.0); %Monocytes 8.3 % (0.0-10.0); %Neutrophils 78.5 % (42.0-75.0); Hemoglobin 13.1 g/dL (14.0-18.0); Mean Corpuscular HGB CONC 31.3 g/dL (32.0-36.0); Mean Corpuscular Volume 96.1 fL (78.0-98.0); Mean Platelet Volume 10.1 fL (7.4-10.4); Platelet Count 152 thou/uL (130-400); RBC Distribution Width 16.1 % (11.5-14.5); Red Blood Cell (RBC) Count 4.35 mill/uL (4.70-6.10); White Blood Cell (WBC) Count 15.6 thou/uL (4.8-10.8)
[2022-03-15 04:25] LABS: ALT (SGPT) 28 U/L (8-55); AST (SGOT) 53 U/L (5-34); Albumin 2.2 g/dL (3.4-4.8); Alkaline Phosphatase 92 U/L (40-110); Anion Gap 17 mmol/L (10-20); BUN (Urea Nitrogen) 42 mg/dL (8.4-25.7); Bilirubin, Total 7.3 mg/dL (0.2-1.2); Calc. Creatinine Clearance 114 mL/min (70-130); Calcium 7.5 mg/dL (7.8-10.44); Carbon Dioxide 27 mmol/L (23-31); Chloride 99 mmol/L (98-107); Estimated GFR 90; Globulin 4.1 g/dL (2.4-3.5); Glucose 85 mg/dL (83-110); Lipase 35 U/L (8-78); Potassium 3.3 mmol/L (3.5-5.1); Protein, Total 6.3 g/dL (5.8-8.1); Sodium 140 mmol/L (136-145)
[2022-03-15] MEDS: Mometasone 100 MCG/PUFF (1 INHALER) INH SCH ×2 (07:05→18:47)
[2022-03-15] MEDS: Saccharomyces boulardii 250 MG CAP PO SCH (08:10)
[2022-03-15] MEDS: Lorazepam 0.5 MG TAB PO PRN (23:19)
[2022-03-16] MEDS ORDERED: fentaNYL Citrate/PF 100 MCG/2 ML SYRINGE ONE ×2 (07:32→15:30)
[2022-03-16] MEDS ORDERED: SUGAMMADEX SODIUM 200 MG/2 ML VIAL ONE ×2 (07:33→15:36)
[2022-03-16 07:44] LABS: #Eosinphils 0.4 thou/uL (0.0-0.7); #Lymphocytes 1.4 thou/uL (1.20-3.40); #Monocytes 0.7 thou/uL (0.11-0.59); #Neutrophils 7.2 thou/uL (1.40-6.50); %Basophils 0.3 % (0.0-1.0); %Eosinophils 3.9 % (0.0-10.0); %Lymphocytes 14.7 % (21.0-51.0); %Monocytes 6.8 % (0.0-10.0); %Neutrophils 74.3 % (42.0-75.0); Hemoglobin 13.2 g/dL (14.0-18.0); Mean Corpuscular HGB CONC 31.6 g/dL (32.0-36.0); Mean Corpuscular Hemoglobin 29.8 pg (27.0-31.0); Mean Corpuscular Volume 94.3 fL (78.0-98.0); Mean Platelet Volume 9.8 fL (7.4-10.4); Platelet Count 141 thou/uL (130-400); RBC Distribution Width 15.8 % (11.5-14.5); Red Blood Cell (RBC) Count 4.42 mill/uL (4.70-6.10); White Blood Cell (WBC) Count 9.7 thou/uL (4.8-10.8)
[2022-03-16] MEDS ORDERED: Bupivacaine 0.25% HCL 30 ML VIAL ONE ×2 (08:00→15:20)
[2022-03-16] MEDS ORDERED: EPINEPHrine 1 MG/ML AMP ONE (08:00)
[2022-03-16 08:03] LABS: ALT (SGPT) 23 U/L (8-55); AST (SGOT) 44 U/L (5-34); Albumin 2.2 g/dL (3.4-4.8); Alkaline Phosphatase 84 U/L (40-110); Anion Gap 13 mmol/L (10-20); BUN (Urea Nitrogen) 30 mg/dL (8.4-25.7); Bilirubin, Total 5.9 mg/dL (0.2-1.2); Calc. Creatinine Clearance 115 mL/min (70-130); Calcium 7.6 mg/dL (7.8-10.44); Carbon Dioxide 29 mmol/L (23-31); Chloride 99 mmol/L (98-107); Estimated GFR 93; Glucose 92 mg/dL (83-110); Magnesium 1.6 mg/dL (1.6-2.6); Phosphorus 2.3 mg/dL (2.3-4.7); Protein, Total 6.2 g/dL (5.8-8.1); Sodium 138 mmol/L (136-145)
[2022-03-16 08:06] LABS: Potassium 2.6 mmol/L (3.5-5.1)
[2022-03-16 08:09] LABS: INR-International Normal Ratio 1.3; Prothrombin Time 16.8 sec (12.0-14.7)
[2022-03-16] MEDS: Mometasone 100 MCG/PUFF (1 INHALER) INH SCH ×2 (08:10→21:35)
[2022-03-16] MEDS: Pantoprazole 40 MG VIAL IVP SCH ×2 (08:34→20:42)
[2022-03-16] MEDS: Saccharomyces boulardii 250 MG CAP PO SCH (08:34)
[2022-03-16] MEDS: Potassium Chloride 20 MEQ in Premix Bag 1 BAG IVPB SCH ×2 (09:26→11:29)
[2022-03-16 14:40] LABS: Potassium 3.4 mmol/L (3.5-5.1)
[2022-03-16] MEDS ORDERED: Lidocaine 1% w/Epinephrine 1:100K 20 ML VIAL ONE (15:20)
[2022-03-16] MEDS ORDERED: Phenylephrine 10 MG/ML VIAL ONE (15:31)
[2022-03-16] MEDS ORDERED: CEFAZOLIN 2 GM VIAL ONE (15:53)
[2022-03-16] MEDS ORDERED: Sodium Chloride 0.9% 100 ML ONE (15:53)
[2022-03-16] MEDS ORDERED: Rocuronium Bromide 10 MG/ML (10ML VIAL) ONE (16:02)
[2022-03-16] MEDS ORDERED: Glycopyrrolate 0.2 MG/ML 5 ML SYRINGE ONE (16:02)
[2022-03-16] MEDS ORDERED: PROPOFOL 200 MG/20 ML VIAL ONE (16:02)
[2022-03-16] MEDS ORDERED: Lidocaine 1% PF 5 ML VIAL ONE (16:02)
[2022-03-16] MEDS ORDERED: Ondansetron PF 4 MG/2 ML Vial ONE ×2 (16:02→18:28)
[2022-03-16] MEDS ORDERED: ePHEDrine 50 MG/ML VIAL ONE (16:02)
[2022-03-16] MEDS ORDERED: Promethazine HCl 25 MG/ML VIAL IM PRN (17:58)
[2022-03-16] MEDS ORDERED: Promethazine HCl 25 MG/ML VIAL IVPB PRN (17:58)
[2022-03-16] MEDS ORDERED: Ondansetron HCl/PF 4 MG/2 ML Vial IVP PRN (17:58)
[2022-03-16] MEDS ORDERED: Acetaminophen/Codeine 30-300mg Tablet PO PRN (18:12)
[2022-03-16] MEDS: Acetaminophen 325 MG TAB PO SCH ×2 (18:45→22:40)
[2022-03-16] MEDS: Ketorolac Tromethamine 30 MG/ML VIAL IVP SCH (19:21)
[2022-03-16] MEDS: Ondansetron PF 4 MG/2 ML Vial IVP PRN (19:49)
[2022-03-16] MEDS ORDERED: Lactated Ringer's 1,000 ML IV SCH (21:45)
[2022-03-16] MEDS: Lorazepam 0.5 MG TAB PO PRN (22:40)
[2022-03-16] MEDS: cefTRIAXone\\ROCEPHIN 1 GM in Sodium Chloride 0.9% 100 ML IVPB SCH (22:43)
[2022-03-17] MEDS: Ketorolac Tromethamine 30 MG/ML VIAL IVP SCH ×3 (01:26→17:22)
[2022-03-17] MEDS: HYDROcodone/Acetaminophen 5/325 mg Tablet PO PRN ×2 (03:29→17:21)
[2022-03-17 03:57] LABS: #Eosinphils 0.2 thou/uL (0.0-0.7); #Lymphocytes 1.3 thou/uL (1.20-3.40); #Monocytes 0.7 thou/uL (0.11-0.59); %Basophils 0.1 % (0.0-1.0); %Eosinophils 1.4 % (0.0-10.0); %Lymphocytes 8.3 % (21.0-51.0); %Monocytes 4.3 % (0.0-10.0); %Neutrophils 85.9 % (42.0-75.0); Hemoglobin 13.7 g/dL (14.0-18.0); Mean Corpuscular HGB CONC 31.4 g/dL (32.0-36.0); Mean Corpuscular Hemoglobin 29.5 pg (27.0-31.0); Mean Platelet Volume 9.5 fL (7.4-10.4); Platelet Count 138 thou/uL (130-400); RBC Distribution Width 16.3 % (11.5-14.5); Red Blood Cell (RBC) Count 4.63 mill/uL (4.70-6.10); White Blood Cell (WBC) Count 15.2 thou/uL (4.8-10.8)
[2022-03-17 04:31] LABS: ALT (SGPT) 20 U/L (8-55); AST (SGOT) 44 U/L (5-34); Albumin 2.2 g/dL (3.4-4.8); Alkaline Phosphatase 75 U/L (40-110); Anion Gap 12 mmol/L (10-20); BUN (Urea Nitrogen) 26 mg/dL (8.4-25.7); Bilirubin, Total 5.9 mg/dL (0.2-1.2); Calc. Creatinine Clearance 118 mL/min (70-130); Calcium 7.3 mg/dL (7.8-10.44); Carbon Dioxide 27 mmol/L (23-31); Chloride 100 mmol/L (98-107); Estimated GFR 93; Globulin 3.8 g/dL (2.4-3.5); Glucose 98 mg/dL (83-110); Magnesium 1.5 mg/dL (1.6-2.6); Phosphorus 2.5 mg/dL (2.3-4.7); Potassium 3.3 mmol/L (3.5-5.1); Sodium 136 mmol/L (136-145)
[2022-03-17] MEDS: Acetaminophen 325 MG TAB PO SCH ×3 (05:53→17:47)
[2022-03-17] MEDS: Mometasone 100 MCG/PUFF (1 INHALER) INH SCH ×2 (07:01→18:58)
[2022-03-17] MEDS: Saccharomyces boulardii 250 MG CAP PO SCH (08:07)
[2022-03-17] MEDS: Pantoprazole 40 MG VIAL IVP SCH ×2 (08:07→21:11)
[2022-03-17] MEDS ORDERED: Potassium Phosphate 30 MMOL, Magnesium Sulfate 4 GM in Sodium Chloride 0.9% 250 ML 250 ML IVPB SCH (08:30)
[2022-03-17] MEDS: cefTRIAXone\\ROCEPHIN 1 GM in Sodium Chloride 0.9% 100 ML IVPB SCH (22:37)
[2022-03-18] MEDS: Acetaminophen 325 MG TAB PO SCH ×5 (00:27→23:37)
[2022-03-18] MEDS: HYDROcodone/Acetaminophen 5/325 mg Tablet PO PRN ×3 (01:50→21:18)
[2022-03-18 03:53] LABS: #Eosinphils 0.9 thou/uL (0.0-0.7); #Lymphocytes 1.8 thou/uL (1.20-3.40); #Monocytes 0.6 thou/uL (0.11-0.59); %Basophils 0.1 % (0.0-1.0); %Eosinophils 5.9 % (0.0-10.0); %Lymphocytes 11.7 % (21.0-51.0); %Monocytes 3.6 % (0.0-10.0); %Neutrophils 78.8 % (42.0-75.0); Hemoglobin 13.2 g/dL (14.0-18.0); Mean Corpuscular HGB CONC 31.2 g/dL (32.0-36.0); Mean Corpuscular Hemoglobin 30.2 pg (27.0-31.0); Mean Corpuscular Volume 96.6 fL (78.0-98.0); Mean Platelet Volume 9.7 fL (7.4-10.4); Platelet Count 137 thou/uL (130-400); RBC Distribution Width 16.5 % (11.5-14.5); Red Blood Cell (RBC) Count 4.37 mill/uL (4.70-6.10); White Blood Cell (WBC) Count 15.2 thou/uL (4.8-10.8)
[2022-03-18 04:17] LABS: ALT (SGPT) 14 U/L (8-55); AST (SGOT) 31 U/L (5-34); Albumin 2.2 g/dL (3.4-4.8); Alkaline Phosphatase 74 U/L (40-110); Anion Gap 13 mmol/L (10-20); BUN (Urea Nitrogen) 23 mg/dL (8.4-25.7); Bilirubin, Total 5.7 mg/dL (0.2-1.2); Calc. Creatinine Clearance 123 mL/min (70-130); Calcium 7.6 mg/dL (7.8-10.44); Carbon Dioxide 28 mmol/L (23-31); Chloride 99 mmol/L (98-107); Estimated GFR 94; Globulin 4.2 g/dL (2.4-3.5); Glucose 110 mg/dL (83-110); Magnesium 2.2 mg/dL (1.6-2.6); Phosphorus 2.8 mg/dL (2.3-4.7); Potassium 3.1 mmol/L (3.5-5.1); Protein, Total 6.4 g/dL (5.8-8.1); Sodium 137 mmol/L (136-145)
[2022-03-18] MEDS: Mometasone 100 MCG/PUFF (1 INHALER) INH SCH ×2 (06:58→18:31)
[2022-03-18] MEDS: Saccharomyces boulardii 250 MG CAP PO SCH (07:38)
[2022-03-18] MEDS: Pantoprazole 40 MG VIAL IVP SCH (07:38)
[2022-03-18] MEDS: cefTRIAXone\\ROCEPHIN 1 GM in Sodium Chloride 0.9% 100 ML IVPB SCH (23:24)
[2022-03-19] MEDS: HYDROcodone/Acetaminophen 5/325 mg Tablet PO PRN ×3 (04:09→23:04)
[2022-03-19] MEDS: Acetaminophen 325 MG TAB PO SCH ×3 (06:52→17:28)
[2022-03-19] MEDS: Saccharomyces boulardii 250 MG CAP PO SCH (07:13)
[2022-03-19] MEDS: Mometasone 100 MCG/PUFF (1 INHALER) INH SCH ×2 (07:32→19:07)
[2022-03-19] MEDS ORDERED: Tamsulosin HCl 0.4 MG CAP PO SCH (09:45)
[2022-03-19 09:52] LABS: #Lymphocytes 1.2 thou/uL (1.20-3.40); #Monocytes 0.5 thou/uL (0.11-0.59); #Neutrophils 9.3 thou/uL (1.40-6.50); %Basophils 0.2 % (0.0-1.0); %Eosinophils 8.6 % (0.0-10.0); %Lymphocytes 9.8 % (21.0-51.0); %Monocytes 4.3 % (0.0-10.0); %Neutrophils 77.1 % (42.0-75.0); Hemoglobin 12.7 g/dL (14.0-18.0); Mean Corpuscular Hemoglobin 30.5 pg (27.0-31.0); Mean Corpuscular Volume 95.3 fL (78.0-98.0); Mean Platelet Volume 9.5 fL (7.4-10.4); Platelet Count 150 thou/uL (130-400); RBC Distribution Width 16.2 % (11.5-14.5); Red Blood Cell (RBC) Count 4.18 mill/uL (4.70-6.10); White Blood Cell (WBC) Count 12.1 thou/uL (4.8-10.8)
[2022-03-19 10:13] LABS: Anion Gap 11 mmol/L (10-20); BUN (Urea Nitrogen) 17 mg/dL (8.4-25.7); Calc. Creatinine Clearance 145 mL/min (70-130); Calcium 7.6 mg/dL (7.8-10.44); Carbon Dioxide 30 mmol/L (23-31); Chloride 100 mmol/L (98-107); Estimated GFR 98; Glucose 124 mg/dL (83-110); Potassium 3.6 mmol/L (3.5-5.1); Sodium 137 mmol/L (136-145)
[2022-03-19] MEDS: cefTRIAXone\\ROCEPHIN 1 GM in Sodium Chloride 0.9% 100 ML IVPB SCH (22:47)
[2022-03-20] MEDS: Acetaminophen 325 MG TAB PO SCH ×4 (00:56→18:12)
[2022-03-20] MEDS: Lorazepam 0.5 MG TAB PO PRN (02:50)
[2022-03-20] MEDS: HYDROcodone/Acetaminophen 5/325 mg Tablet PO PRN ×3 (04:19→20:00)
[2022-03-20] MEDS: Mometasone 100 MCG/PUFF (1 INHALER) INH SCH ×2 (06:52→19:22)
[2022-03-20] MEDS: Saccharomyces boulardii 250 MG CAP PO SCH (09:32)
[2022-03-20] MEDS: Tamsulosin HCl 0.4 MG CAP PO SCH (09:33)
[2022-03-20] MEDS ORDERED: Potassium Chloride 20 MEQ TAB PO SCH (12:15)
[2022-03-20] MEDS ORDERED: guaiFENesin ER 600 MG TAB PO SCH (12:15)
[2022-03-20] MEDS: Furosemide 40 MG/4 ML VIAL SLOW IVP SCH (14:31)
[2022-03-20] MEDS: guaiFENesin ER 600 MG TAB PO SCH (19:59)
[2022-03-21] MEDS: Acetaminophen 325 MG TAB PO SCH ×3 (00:36→11:59)
[2022-03-21] MEDS: Furosemide 40 MG/4 ML VIAL SLOW IVP SCH (05:34)
[2022-03-21] MEDS: HYDROcodone/Acetaminophen 5/325 mg Tablet PO PRN ×2 (05:40→12:00)
[2022-03-21] MEDS: Mometasone 100 MCG/PUFF (1 INHALER) INH SCH (06:30)
[2022-03-21 08:13] VITALS: BP 107/74; TEMP 97.4
[2022-03-21] MEDS: guaiFENesin ER 600 MG TAB PO SCH (08:51)
[2022-03-21] MEDS: Tamsulosin HCl 0.4 MG CAP PO SCH (08:51)
[2022-03-21] MEDS: Saccharomyces boulardii 250 MG CAP PO SCH (08:51)
== END 2022-03-21 13:29 | disposition hospice, home (50) | DRG 417 ==
LOC: ERS 12:14 → T4-A 16:41 → CCU 03-14 15:36 → IMCU/EMU 03-14 21:49 → CCU 03-16 16:31 → IMCU/EMU 03-16 19:02 → T4-B 03-19 17:30
PROVIDERS: ADMIT Internal Medicine; ATTEND Internal Medicine
PROC: 0FC98ZZ Extirpation of Matter from Common Bile Duct, Via Natural or Artificial Opening Endoscopic (ICD-10-PCS; 2022-03-14)
PROC: BF141ZZ Fluoroscopy of Gallbladder, Bile Ducts and Pancreatic Ducts using Low Osmolar Contrast (ICD-10-PCS; 2022-03-14)
PROC: 0FT44ZZ Resection of Gallbladder, Percutaneous Endoscopic Approach (ICD-10-PCS; principal; 2022-03-16)
DX: K85.10 Biliary acute pancreatitis without necrosis or infection (principal); I50.23 Acute on chronic systolic (congestive) heart failure; J95.821 Acute postprocedural respiratory failure; N39.0 Urinary tract infection, site not specified; I48.20 Chronic atrial fibrillation, unspecified; K80.63 Calculus of gallbladder and bile duct with acute cholecystitis with obstruction; D68.8 Other specified coagulation defects; Z66 Do not resuscitate; Z51.5 Encounter for palliative care; Z20.822 Contact with and (suspected) exposure to COVID-19; K26.9 Duodenal ulcer, unspecified as acute or chronic, without hemorrhage or perforation; J44.9 Chronic obstructive pulmonary disease, unspecified; I25.10 Atherosclerotic heart disease of native coronary artery without angina pectoris; I11.0 Hypertensive heart disease with heart failure; E80.6 Other disorders of bilirubin metabolism; E87.6 Hypokalemia; T42.6X5A Adverse effect of other antiepileptic and sedative-hypnotic drugs, initial encounter; Z79.899 Other long term (current) drug therapy; Z95.2 Presence of prosthetic heart valve; Z79.51 Long term (current) use of inhaled steroids; Z79.82 Long term (current) use of aspirin; Z79.01 Long term (current) use of anticoagulants; Z86.718 Personal history of other venous thrombosis and embolism; Z95.0 Presence of cardiac pacemaker; Z98.890 Other specified postprocedural states; I25.2 Old myocardial infarction; Z86.73 Personal history of transient ischemic attack (TIA), and cerebral infarction without residual deficits; Z86.711 Personal history of pulmonary embolism; Z90.89 Acquired absence of other organs; Z87.891 Personal history of nicotine dependence; Z82.5 Family history of asthma and other chronic lower respiratory diseases; I35.0 Nonrheumatic aortic (valve) stenosis; Z95.828 Presence of other vascular implants and grafts
CPT/HCPCS: 36415; 36416; 36600; 71045; 74177; 74330; 76705; 80048; 80053; 80074; 81003; 81015; 82805; 83615; 83690; 83735; 83880; 84100; 84484; 85025; 85610; 85730; 86301; 86850; 86900; 86901; 88304; 93005; 93306; 94640; 96361; 96374; C1713; C9113; J0171; J0690; J0696; J1650; J1885; J1940; J2370; J2405; J2550; J2704; J3010; J3430; J3475; J3480; J3490; J7030; J7050; J7120; J7620; Q9963; Q9967; S0020; U0003; U0005